=== PATIENT | male | born 1945 | race Caucasian/White ===

== ENCOUNTER → 2019-09-23 | Outpatient (CLI) | payer OTHER ==
--- NOTE | 2019-09-23 11:48 | RADIOLOGY REPORT (SQ) ---
EXAM DESCRIPTION: MRI LUMBAR SPINE WITHOUT COMPLETED DATE/TIME: 09/23/2019 9:38 am REASON FOR STUDY: PAIN COMPARISON: None. TECHNIQUE: Sagittal and Axial imaging includes T1, T2, STIR and gradient echo sequences. Coronal T2/ HASTE imaging. LIMITATIONS: None. FINDINGS: VISUALIZED UPPER ABDOMEN: Limited evaluation. No acute or suspicious findings suggested. SEGMENTATION: No transitional anatomy. The lowest well-developed disc space is labeled L5-S1. ALIGNMENT: Anatomic. VERTEBRAE: Intact. BONE MARROW: Normal. No marrow replacement or reactive changes. DISC SIGNAL: Normal disc height. Loss of signal throughout the lumbar spine. POSTERIOR ELEMENTS: Generally intact. No pars defect evident. HARDWARE: None in the spine. CORD AND CONUS: Normal in size and signal intensity. Conus at the appropriate level. SOFT TISSUES: No aortic aneurysm seen. No bulky retroperitoneal adenopathy or mass. No paraspinal mas s or fluid. L1-L2: No significant spinal stenosis or exit foraminal stenosis. L2-L3: Annular disc bulging. Bilateral facet arthropathy. Mild central stenosis. No definite zaira inal narrowing. L3-L4: Broad-based annular disc bulging with bilateral facet arthropathy. Moderate central stenosis. Bilateral foraminal stenosis. L4-L5: Broad-based annular disc bulging and bilateral facet arthropathy with moderate central stenosi s. There is bilateral foraminal narrowing right slightly greater than left. L5-S1: Annular bulge. Facet arthropathy. No significant central stenosis or foraminal narrowing. LOWER THORACIC: Incompletely imaged. No stenosis seen. SACRUM: Visualized upper sacrum intact. OTHER: No other significant findings. IMPRESSION: There is multilevel spondylosis. Mild central stenosis at L2-L3. Bilateral facet arthropathy. No foraminal narrowing. Moderate central stenosis at L3-L4 secondary to annular disc bulging and facet arthropathy. There is bilateral foraminal stenosis. Broad-based annular disc bulging at L4-L5 with bilateral facet arthropathy. There is resulting moder ate central stenosis and bilateral foraminal narrowing right greater than left. TECHNICAL DOCUMENTATION: JOB ID: [id number] [employer]- All Rights Reserved Reading location - IP/workstation name: [email or web address]
== END ==
LOC: RAD 08:16
PROVIDERS: ATTEND Nurse Practitioner Family
DX: M54.5 Low back pain (principal)
CPT/HCPCS: 72148